=== PATIENT | male | born 1950 | race Caucasian/White ===

== ENCOUNTER 2021-08-11 13:43 | Inpatient (IN) | payer OTHER ==
[~2021-08-11] VITALS: Ht 172.7 cm; Wt 73.0 kg
--- NOTE | 2021-08-11 13:45 | NUR ---
PT ZOHAIB FROM DIALYSIS CENTER C/O LOW BP 80'S SYSTOLIC; NO HD GIVEN TODAY. ON ANTIBIOTIC TREATMENT MACRODANTIN FOR UTI STARTED YESTERDAY. PT LIVES AT [facility]. PT A/OX1. T-PIECE ON 6LPM; SATTING 96%. RCW HD PERM-A-CATH INTACT.
[2021-08-11] MEDS ORDERED: IV NS 0.9% 500 ML BAG IV ONE (14:00)
--- NOTE | 2021-08-11 14:12 | NUR ---
RAC #20G S/L; PATENT AND INTACT. BLOOD COLLECTED AND SENT TO LAB
[2021-08-11] MEDS ORDERED: DOCU-141 GT (14:19)
[2021-08-11] MEDS ORDERED: CHOL200013 GT (14:19)
[2021-08-11] MEDS ORDERED: TAMS-12 GT (14:19)
[2021-08-11] MEDS ORDERED: ESCI10TA GT (14:19)
[2021-08-11] MEDS ORDERED: LOSA25TA3 GT (14:19)
[2021-08-11] MEDS ORDERED: INSU100V36 SQ (14:19)
[2021-08-11] MEDS ORDERED: FAMO-131 GT (14:19)
[2021-08-11] MEDS ORDERED: MONT10TA22 GT (14:19)
[2021-08-11] MEDS ORDERED: FINA5TAB4 GT (14:19)
[2021-08-11] MEDS ORDERED: INSU100V7 SQ (14:19)
[2021-08-11] MEDS ORDERED: SENN-18 GT (14:19)
[2021-08-11] MEDS ORDERED: ZINC220T4 GT (14:19)
[2021-08-11 14:33] LABS: BASOPHILS # (AUTO) 0.1 K/uL (0.0-0.2); BASOPHILS % (AUTO) 0.5 % (0.0-2.0); EOSINOPHILS % (AUTO) 1.7 % (0.0-6.0); HEMATOCRIT 32 % (39-51); HEMOGLOBIN 9.9 g/dL (13.5-17.5); LYMPHOCYTES # (AUTO) 0.6 K/uL (0.8-4.8); LYMPHOCYTES % (AUTO) 4.2 % (20.0-44.0); MEAN CORPUSCULAR HGB CONC 31 g/dl (31.0-36.0); MEAN CORPUSCULAR VOLUME 97 fL (80-96); MONOCYTES # (AUTO) 0.8 K/uL (0.1-1.30); MONOCYTES % (AUTO) 5.8 % (2.0-12.0); NEUTROPHILS # (AUTO) 11.6 K/uL (1.8-8.9); NEUTROPHILS % (AUTO) 87.8 % (43.0-81.0); PLATELET COUNT (AUTO) 403 K/uL (150-450); RED BLOOD CELL COUNT(AUTO) 3.25 MIL/uL (4.5-6.0); WHITE BLOOD COUNT (AUTO) 13.2 K/uL (4.3-11.0)
[2021-08-11 14:39] LABS: CALCIUM, SERUM 11.4 mg/dL (8.5-10.1); CARBON DIOXIDE 26 mmol/L (21-32); CHLORIDE 98 mmol/L (98-107); CREATININE 4.2 mg/dL (0.6-1.3); GLUCOSE 209 mg/dL (74-106); POTASSIUM 3.2 mmol/L (3.5-5.1); SODIUM SERUM 132 mmol/L (136-145); UREA NITROGEN, BLOOD 68 mg/dL (7-18)
[2021-08-11] MEDS ORDERED: ONDANSETRON HCL/PF 4 MG/2 ML VIAL IV ONE (15:00)
[2021-08-11] MEDS ORDERED: ONDANSETRON HCL/PF 4 MG/2 ML VIAL ONE (15:10)
[2021-08-11 15:47] LABS: LYMPHOCYTES % (MANUAL) 5 % (16-48); MONOCYTES % (MANUAL) 10 % (0-11.0); NEUTROPHILS % (MANUAL) 85 (42-76)
[2021-08-11] MEDS ORDERED: PIPERACILLIN /TAZOBACTAM 3.375 G in IV D5W 50 ML IV ONE (16:00)
[2021-08-11] MEDS ORDERED: VANCOMYCIN 1 GM in IV D5W 250 ML IV ONE (16:00)
--- NOTE | 2021-08-11 16:13 | NUR ---
COVID ANTIGEN AND PCR SWAB COLLECTED AND SENT TO LAB. CALLED RT
--- NOTE | 2021-08-11 18:26 | NUR ---
[facility] CALLED PYROMETALLURGICAL ENGINEER PAGED.
--- NOTE | 2021-08-11 18:50 | NUR ---
BED ASSIGNED,112-2, TRANSFER AFTER 2000
--- NOTE | 2021-08-11 18:56 | NUR ---
ADLS DONE. INCONTINENT; SMALL LOOSE BMX1 & LARGE URINE NOTED. SKIN KEPT CLEAN AND DRY. TURNED PT Q2H. PT SEEN DURAN MANAGER HIV
--- NOTE | 2021-08-11 19:00 | NUR ---
RT NOTE RECEIVED PT ON 5LPM TBAR. NO SOB OR INCREASED WOB AT THE MOMENT. NO S/S OF ACUTE RESPIRATORY DISTRESS NOTED. WILL CONTINUW TO MONITOR T/O SHIFT
[2021-08-11] MEDS ORDERED: ONDANSETRON HCL/PF 4 MG/2 ML VIAL IVP PRN (20:00)
[2021-08-11] MEDS ORDERED: Z GUARD REMEDY 4 OZ OINT TP PRN (20:00)
[2021-08-11] MEDS ORDERED: DEXTROSE 50%-WATER 50 ML DISP.SYRIN IV PRN (20:00)
--- NOTE | 2021-08-11 20:05 | NUR ---
REPORT GIVEN TO PHYLICIA CLEARY RN FOR VELMA
[2021-08-11] MEDS ORDERED: CEFEPIME 2 GM in IV D5W 100 ML IV ONE (21:00)
--- NOTE | 2021-08-11 21:15 | NUR ---
TELE1 JUMBO OPERATOR NOTES RECEIVED FROM ER BY BED THIS 71 Y.O. MALE,ALERT,ORIENTED X1-2,CONFUSED,PLACE ON T-PIECE AT 6L,O2 SAT 99%.DX OF ACUTE HYPOXIC RESPIRATORY FAILURE,SEPSIS,PNA.CAME FROM HD CENTER FOR DH TREATMENT SUPPOSED TO BE BUT THE BLOOD PRESSURE WAS ON THE LOW SIDE.WITH KNOWN HX OF HTN,BPH,DM,OA,COVID POSITIVE.WITH GT CLAMPED ,RIGHT UPPER CHEST WALL CATHETER FOR HD TREATMENT.SALINE LOCK RIGHT AC FOR MEDS,NOTED SOME DRY WOUND WITH SCAB ON BOTH UPPER EXTREMITIES,PROMINENT ON THE RIGHT.INCONTINENT OF BOWEL AND BLADDER.FALL PRECAUTION OBSERVED.BED ON ,LOWEST POSITION AND LOCKED.DROPLET ISOLATION WITH PRECAUTION WHILE WAITING FOR PCR COVID TEST.WILL CONTINUE TO MONITOR STATUS.
[2021-08-11 21:20] VITALS: BP 101/53
[2021-08-11] MEDS: ESCITALOPRAM OXALATE (10 MG) 10 MG TABLET GT SCH (21:56)
[2021-08-11] MEDS: SENNOSIDES 8.6 MG TABLET GT SCH (21:56)
[2021-08-11] MEDS: HEPARIN SODIUM, PORCINE 5000 UNITS/1 ML VIAL SQ SCH (21:58)
[2021-08-11] MEDS ORDERED: CEFEPIME 1 GM VIAL ONE (22:10)
[2021-08-11] MEDS: ACETAMINOPHEN 650 MG/20.3 ML UDC GT PRN (22:54)
--- NOTE | 2021-08-11 22:54 | NUR ---
CHIEF LOAD DISPATCHER NOTES VERY RESTLESS WITH FACIAL GRIMACE NOTED,TYLENOL 650MG IN LIQUID FORM GIVEN VIA GT.
[2021-08-11] MEDS: INSULIN GLARGINE, 100 UNIT/ML CARTRIDGE SQ SCH (23:15)
[2021-08-11] MEDS: NEPRO 1,000 ML BOTTLE GT PRN (23:54)
[2021-08-12] VITALS: BP 111/54
--- NOTE | 2021-08-12 | NUR ---
CO FOUNDER AND CTO NOTES GT FEEDING OF NEPRO 55ML/HR RATE STARTED
--- NOTE | 2021-08-12 00:08 | NUR ---
RN NOTE CALLED LAB TO FOLLOW UP ON THE SECOND UNIT OF BLOOD THAT THE PATIENT IS SUPPOSE TO RECEIVE. SPOKE TO EUGENE, SHE SAID THAT SHE WILL GET BACK TO ME TO FOLLOW UP.
[2021-08-12] MEDS: BLOOD SUGAR DIAGNOSTIC 1 EACH STRIP IN SCH ×5 (00:25→23:48)
[2021-08-12] MEDS: INSULIN REGULAR, HUMAN 100 UNIT/ML 3 ML VIAL SQ PRN ×4 (00:26→17:20)
--- NOTE | 2021-08-12 00:30 | NUR ---
NEWSPERSON NOTES ACCU-CHECK BLOOD SUGAR CHECKED 174,COVERED WITH HUMULIN R 3 UNITS PER SLIDING SCALE.
--- NOTE | 2021-08-12 00:43 | NUR ---
STONE DERRICKMAN AND RIGGER NOTES PLACE ON BILATERAL SOFT WRIST RESTRAINT,PATIENT IS VERY RESTLESS,TRYING TO PULL GT AND IV TUBINGS,CHARGE NURSE MADE AWARE,ORDER PLACED
--- NOTE | 2021-08-12 02:14 | NUR ---
RT NOTE FOUND PT ON 5LPM, SPO2 @ 1OO%, DECREASED FIO2 TO 4LPM. SPO2 CURRENTLY AT 98-100% NO SOB NOTED. BACKUP TRACH BY BEDSIDE. NO S/S OF ACUTE RESPIRATORY DISTRESS. WILL CONTINUE TO MONITOR T/O SHIFT.
[2021-08-12] MEDS: HYDROCODONE/APAP 5/325MG TABLET GT PRN ×3 (02:57→23:48)
[2021-08-12 04:00] VITALS: BP 103/51
--- NOTE | 2021-08-12 05:45 | NUR ---
NUCLEAR PLANT EQUIPMENT OPERATOR NOTES SLEPT WITH INTERVALS,GT FEEDING INFUSING WELL,TOLERATED WELL,BLOOD SUGAR CONTROLLED.RESTRAINTS IN USED FOR SAFETY.IN NO ACUTE DISTRESS.
[2021-08-12] MEDS ORDERED: VANCOMYCIN POST DIALYSIS 500MG IV PRN (06:30)
[2021-08-12 07:04] LABS: BASOPHILS % (AUTO) 0.1 % (0.0-2.0); HEMATOCRIT 29 % (39-51); HEMOGLOBIN 9.2 g/dL (13.5-17.5); LYMPHOCYTES # (AUTO) 0.3 K/uL (0.8-4.8); LYMPHOCYTES % (AUTO) 1.8 % (20.0-44.0); MEAN CORPUSCULAR HGB CONC 32 g/dl (31.0-36.0); MEAN CORPUSCULAR VOLUME 96 fL (80-96); MONOCYTES # (AUTO) 0.3 K/uL (0.1-1.30); MONOCYTES % (AUTO) 1.8 % (2.0-12.0); NEUTROPHILS # (AUTO) 14.8 K/uL (1.8-8.9); NEUTROPHILS % (AUTO) 95.3 % (43.0-81.0); PLATELET COUNT (AUTO) 383 K/uL (150-450); WHITE BLOOD COUNT (AUTO) 15.5 K/uL (4.3-11.0)
[2021-08-12 07:27] LABS: CARBON DIOXIDE 24 mmol/L (21-32); CHLORIDE 98 mmol/L (98-107); CREATININE 4.6 mg/dL (0.6-1.3); GLUCOSE 154 mg/dL (74-106); MAGNESIUM 2.6 mg/dL (1.8-2.4); SODIUM SERUM 133 mmol/L (136-145); UREA NITROGEN, BLOOD 77 mg/dL (7-18)
--- NOTE | 2021-08-12 07:37 | NUR ---
RN NOTE PATIENT RECEIVED IN BED, AWAKE, A&OX1. PATIENT WITH T-PIECE AT 6L O2 WITH NO SIGNS OF LABORED BREATHING. BILATERAL SOFT WRIST RESTRAINS IN PLACE, SKIN WARM AND INTACT. G TUBE IN PLACE RUNNING NEPRO AT 55 CC/HR. LEFT AC 20G SL AND RIGHT UPPER CHEST HD CATH IN PLACE. BED LOCKED AND IN LOWEST POSITION, CALL LIGHT WITHIN REACH, 2 SIDE RAILS UP. WILL CONTINUE TO MONITOR.
[2021-08-12 08:00] VITALS: BP 117/55
[2021-08-12] MEDS ORDERED: POTASSIUM CHLORIDE 20 MEQ TAB.PRT.SR PO ONE (08:00)
[2021-08-12] MEDS: CHOLECALCIFEROL 1,000 UNIT TABLET (VIT D3) GT SCH (08:28)
[2021-08-12] MEDS: MONTELUKAST SODIUM (10MG) 10 MG TABLET GT SCH (08:28)
[2021-08-12] MEDS: FAMOTIDINE (20 MG) 20 MG TABLET GT SCH (08:28)
[2021-08-12] MEDS: ZINC SULFATE 220 MG CAPSULE GT SCH (08:28)
[2021-08-12] MEDS: FINASTERIDE (5 MG) 5 MG TABLET GT SCH (08:28)
[2021-08-12] MEDS: HEPARIN SODIUM, PORCINE 5000 UNITS/1 ML VIAL SQ SCH ×2 (08:30→22:10)
[2021-08-12] MEDS: TAMSULOSIN 0.4 MG CAP.SR.24H GT SCH (08:33)
[2021-08-12 12:00] VITALS: BP_SYST 108; BP_SYST 86; BP_DIAS 31; BP_DIAS 50
[2021-08-12] MEDS ORDERED: EPOETIN ALFA-EPBX 10,000 UNIT/ML VIAL IV ONE (15:00)
[2021-08-12 16:00] VITALS: BP 100/49
[2021-08-12] MEDS: NEPRO 1,000 ML BOTTLE GT PRN (18:34)
--- NOTE | 2021-08-12 18:46 | NUR ---
RN CLOSING NOTE PATIENT REMAINS IN BED, AWAKE, A&OX1. PATIENT WITH T-PIECE AT 6L O2 WITH NO SIGNS OF LABORED BREATHING. BILATERAL SOFT WRIST RESTRAINS IN PLACE, SKIN WARM AND INTACT. G TUBE IN PLACE RUNNING NEPRO AT 55 CC/HR. LEFT AC 20G SL AND RIGHT UPPER CHEST HD CATH IN PLACE. ALL NEEDS ATTENDED DURING SHIFT. BED LOCKED AND IN LOWEST POSITION, CALL LIGHT WITHIN REACH, 2 SIDE RAILS UP. WILL ENDORSE TO FENCE REPAIRMAN NURSE.
--- NOTE | 2021-08-12 19:30 | NUR ---
RN OPENING NOTE PATIENT RECEIVED IN BED, AWAKE, A&OX1 SCREAMING AND SHOUTING. PATIENT WITH T-PIECE AT 6L O2 WITH NO SIGNS OF LABORED BREATHING. BILATERAL SOFT WRIST RESTRAINS IN PLACE, SKIN WARM AND INTACT. G TUBE IN PLACE RUNNING NEPRO AT 55 CC/HR.G TUBE FLUSHING WELL AND PATENT. LEFT AC 20G SL AND RIGHT UPPER CHEST HD CATH IN PLACE. PATIENT ON TELE MONITOR HR OF 95.BED LOCKED AND IN LOWEST POSITION, CALL LIGHT WITHIN REACH, 2 SIDE RAILS UP. WILL CONTINUE TO MONITOR FOR PAIN AND FURTHER AGITATION.
[2021-08-12 20:00] VITALS: BP 91/65
[2021-08-12] MEDS: SENNOSIDES 8.6 MG TABLET GT SCH (22:04)
[2021-08-12] MEDS: CEFEPIME 1 GM in IV D5W 50 ML IV SCH (22:06)
[2021-08-12] MEDS: ESCITALOPRAM OXALATE (10 MG) 10 MG TABLET GT SCH (22:12)
[2021-08-12] MEDS: INSULIN GLARGINE, 100 UNIT/ML CARTRIDGE SQ SCH (22:27)
[2021-08-13] VITALS: BP 116/73
[2021-08-13] MEDS: INSULIN REGULAR, HUMAN 100 UNIT/ML 3 ML VIAL SQ PRN ×5 (00:02→23:07)
--- NOTE | 2021-08-13 00:08 | NUR ---
RN NOTE CALLED LAB TO FOLLOW UP ON THE SECOND UNIT OF BLOOD THAT THE PATIENT IS SUPPOSE TO RECEIVE. SPOKE TO DUNIA, SHE SAID THAT SHE WILL GET BACK TO ME TO FOLLOW UP. Addendum: 08/13/21 at 0417 by Darline Romero RN THIS NOTE IS NOT INTENDED FOR THIS PATIENT. WRONG PATIENT DOCUMENTATION.
--- NOTE | 2021-08-13 00:42 | NUR ---
RN NOTE LAB CALLED, SAYING THAT THEIR SYSTEM IS SHOWING THAT 2 UNITS OF BLOOD WAS GIVEN OUT FOR THIS PATIENT. I EXPLAINED ONCE MORE THAT ONLY ONE UNIT WAS TRANSFUSED TODAY, AND THAT WE ARE STILL WAITING ON THE SECOND UNIT FROM THEM.THEY SAID THEY WILL LOOK INTO IT ONCE MORE AND CALL BACK. WILL CONTINUE TO FOLLOW UP WITH THEM REGARDING THE ORDER. Addendum: 08/13/21 at 0417 by Darline Romero RN THIS NOTE IS NOT INTENDED FOR THIS PATIENT. WRONG PATIENT DOCUMENTATION.
[2021-08-13] MEDS: ACETAMINOPHEN 650 MG/20.3 ML UDC GT PRN (02:57)
[2021-08-13 04:00] VITALS: BP 92/57
--- NOTE | 2021-08-13 05:00 | NUR ---
RN NOTE REASSESSED PATIENTS TEMPERATURE. IT WAS 99.0.
[2021-08-13] MEDS: BLOOD SUGAR DIAGNOSTIC 1 EACH STRIP IN SCH ×4 (05:52→23:10)
[2021-08-13 07:15] LABS: BASOPHILS # (AUTO) 0.1 K/uL (0.0-0.2); BASOPHILS % (AUTO) 0.5 % (0.0-2.0); EOSINOPHILS % (AUTO) 0.1 % (0.0-6.0); HEMATOCRIT 30 % (39-51); HEMOGLOBIN 9.4 g/dL (13.5-17.5); LYMPHOCYTES # (AUTO) 0.2 K/uL (0.8-4.8); LYMPHOCYTES % (AUTO) 1.1 % (20.0-44.0); MEAN CORPUSCULAR HGB CONC 31 g/dl (31.0-36.0); MEAN CORPUSCULAR VOLUME 98 fL (80-96); MONOCYTES # (AUTO) 0.6 K/uL (0.1-1.30); MONOCYTES % (AUTO) 2.7 % (2.0-12.0); NEUTROPHILS # (AUTO) 21.3 K/uL (1.8-8.9); NEUTROPHILS % (AUTO) 95.6 % (43.0-81.0); PLATELET COUNT (AUTO) 390 K/uL (150-450); RED BLOOD CELL COUNT(AUTO) 3.06 MIL/uL (4.5-6.0); WHITE BLOOD COUNT (AUTO) 22.2 K/uL (4.3-11.0)
--- NOTE | 2021-08-13 07:16 | NUR ---
RN OPENING NOTE- PATIENT IN BED, AWAKE, SHOUTING. PATIENT WITH T-PIECE AT 6L O2 WITH NO SIGNS OF LABORED BREATHING. BILATERAL SOFT WRIST RESTRAINTS IN PLACE, SKIN WARM AND INTACT. G TUBE IN PLACE RUNNING NEPRO AT 55 CC/HR.G TUBE FLUSHING WELL AND PATENT. LEFT AC 20G SL AND RIGHT UPPER CHEST HD CATH IN PLACE. PATIENT ON TELE MONITOR HR OF 90/M .BED LOCKED AND IN LOWEST POSITION, CALL LIGHT WITHIN REACH, 2 SIDE RAILS UP. WILL CONTINUE TO MONITOR FOR PAIN AND FURTHER AGITATION.
--- NOTE | 2021-08-13 07:33 | NUR ---
RN CLOSING NOTE PATIENT REMAINS IN BED, AGITATED AT TIME YELLING. PATIENTS FEVER CAME DOWN TO 99.1 AFTER ADMINISTRATION OF TYLENOL AND THE USE OF COOLING MEASURES SUCH ICE PACKS. 55ML NEPRO THROUGH G TUBE STILL RUNNING. ALL PATIENT NEEDS MET THROUGHOUT THE NIGHT. ENDORSED PLAN OF CARE TO AM NURSE.
[2021-08-13 07:39] LABS: CALCIUM, SERUM 11.6 mg/dL (8.5-10.1); CARBON DIOXIDE 22 mmol/L (21-32); CHLORIDE 95 mmol/L (98-107); CREATININE 5.7 mg/dL (0.6-1.3); PHOSPHORUS 6.8 mg/dL (2.5-4.9); POTASSIUM 3.6 mmol/L (3.5-5.1); SODIUM SERUM 130 mmol/L (136-145)
[2021-08-13 08:00] VITALS: BP 122/74
[2021-08-13] MEDS ORDERED: EPOETIN ALFA (10,000 UNIT) 10,000 UNIT/ML VIAL IV ONE (08:30)
[2021-08-13] MEDS: TAMSULOSIN 0.4 MG CAP.SR.24H GT SCH (09:01)
[2021-08-13] MEDS: ZINC SULFATE 220 MG CAPSULE GT SCH (09:02)
[2021-08-13] MEDS: FINASTERIDE (5 MG) 5 MG TABLET GT SCH (09:02)
[2021-08-13] MEDS: MONTELUKAST SODIUM (10MG) 10 MG TABLET GT SCH (09:02)
[2021-08-13] MEDS: FAMOTIDINE (20 MG) 20 MG TABLET GT SCH (09:02)
[2021-08-13] MEDS: CHOLECALCIFEROL 1,000 UNIT TABLET (VIT D3) GT SCH (09:02)
[2021-08-13] MEDS: HEPARIN SODIUM, PORCINE 5000 UNITS/1 ML VIAL SQ SCH ×2 (09:07→20:50)
[2021-08-13 09:51] LABS: GLUCOSE 402 mg/dL (74-106)
[2021-08-13 09:52] LABS: UREA NITROGEN, BLOOD 110 mg/dL (7-18)
[2021-08-13] MEDS ORDERED: INSULIN REGULAR, HUMAN 100 UNIT/ML 3 ML VIAL SQ ONE (11:30)
--- NOTE | 2021-08-13 11:30 | NUR ---
RN NOTE- HD RN AT BEDSIDE . INITIATED HD.
[2021-08-13 12:00] VITALS: BP 122/78
--- NOTE | 2021-08-13 12:45 | NUR ---
RN NOTE- HD RN CEASED HD. LOW BP.
[2021-08-13 16:00] VITALS: BP 99/59
--- NOTE | 2021-08-13 16:31 | NUR ---
RN NOTE- UA COLLECTED IN & OUT CATH FOR NEPHRO TESTING. LAB NOTIFIED
[2021-08-13] MEDS ORDERED: ALTEPLASE CATHFLO 2 MG/VIAL XX ONE ×2 (17:30)
--- NOTE | 2021-08-13 18:37 | NUR ---
RN CLOSING NOTE- PATIENT REMAINS IN BED, CONFUSION W PERIODS OF CALLING OUT. GT 55ML NEPRO STILL RUNNING. ALL PATIENT NEEDS MET THROUGHOUT THE NIGHT. PT FOR HD TONIGHT. HD RN CAME TODAY, STOPPED HD DUE TO LOW BP. RT SUCTIONED PT PERIODICALLY, AGITATION AT TIMES, NEEDS ATTENDED, GT CONTINUES, SIDE RAILS UP, BED LOCKED, MONITOR/ ASSIST
[2021-08-13 18:48] LABS: BILIRUBIN,URINE NEGATIVE (NEGATIVE); COLOR,URINE YELLOW (YELLOW); LEUKOCYTE ESTERASE ,URINE MODERATE (NEGATIVE); NITRITE, URINE NEGATIVE (NEGATIVE); PH,URINE 5.5 (5.0-8.0); PROTEIN,URINE 100 mg/dl (NEGATIVE); UGLUCOSE 100 MG/DL mg/dL (NEGATIVE); UROBILINOGEN,URINE 0.2 EU/dL (0.2)
--- NOTE | 2021-08-13 19:40 | NUR ---
RN NOTE PT RECEIVED IN BED. PT HAS T-PIECE AT 5L TOLERATING WELL. PT IS ALERT AND ORIENTED X1. ON ORAL HEALTH THERAPIST SHOWING NSR. SOFT WRIST RESTRAINTS NOTED BILATERALLY. GT NOTED WITH NEPRO RUNNING AT 55 CC/HR. TOLERATING WELL WITH NO RESIDUAL NOTED. RIGHT AC #20 IV ACCESS FLUSHED AND INTACT WITH NO SIGNS OF INFILTRATION. RIGHT CHEST HD CATH NOTED WELL. ALL SAFETY MEASURES IMPLEMENTED. WILL CONTINUE TO MONITOR AND ASSESS FOR ANY CHANGES DURING SHIFT.
[2021-08-13 19:54] LABS: BACTERIA,URINE 4+ /HPF (None Seen); RBC,URINE 21-50 /HPF (0-2); SQUAMOUS EPITHELIAL CELL,UR 0-2 /HPF (None Seen); WBC,URINE 51-80 /HPF (0-3)
[2021-08-13 20:00] VITALS: BP 113/71
[2021-08-13] MEDS ORDERED: VANCOMYCIN 1 GM in IV D5W 250 ML IV ONE (20:00)
[2021-08-13] MEDS: SENNOSIDES 8.6 MG TABLET GT SCH (21:09)
[2021-08-13] MEDS: NEPRO 1,000 ML BOTTLE GT PRN (21:09)
[2021-08-13] MEDS: ESCITALOPRAM OXALATE (10 MG) 10 MG TABLET GT SCH (21:09)
[2021-08-13] MEDS: INSULIN GLARGINE, 100 UNIT/ML CARTRIDGE SQ SCH (23:09)
[2021-08-13] MEDS: CEFEPIME 1 GM in IV D5W 50 ML IV SCH (23:10)
[2021-08-14] VITALS: BP 104/61
[2021-08-14 04:00] VITALS: BP 101/54
[2021-08-14] MEDS: BLOOD SUGAR DIAGNOSTIC 1 EACH STRIP IN SCH ×4 (05:57→23:10)
[2021-08-14] MEDS: INSULIN REGULAR, HUMAN 100 UNIT/ML 3 ML VIAL SQ PRN ×4 (05:59→23:15)
--- NOTE | 2021-08-14 06:59 | NUR ---
RN NOTE NO CHANGES IN PT CONDITION DURING SHIFT. PT HAS T-PIECE AT 5L. PT IS ALERT AND ORIENTED X1. ON COFFEE MACHINE TECHNICIAN SHOWING NSR. SOFT WRIST RESTRAINTS NOTED BILATERALLY. GT NOTED WITH NEPRO RUNNING AT 55 CC/HR. TOLERATING WELL WITH NO RESIDUAL NOTED. RIGHT AC #20 IV ACCESS FLUSHED AND INTACT WITH NO SIGNS OF INFILTRATION. RIGHT CHEST HD CATH NOTED. ALL DUE MEDS GIVEN ORDERED. PT KEPT CLEAN AND COMFORTABLE. ALL SAFETY MEASURES IMPLEMENTED. WILL ENDORSE TO MORNING SHIFT RN FOR VELMA.
[2021-08-14 07:00] LABS: BASOPHILS % (AUTO) 0.1 % (0.0-2.0); EOSINOPHILS % (AUTO) 1.4 % (0.0-6.0); HEMATOCRIT 29 % (39-51); HEMOGLOBIN 9.1 g/dL (13.5-17.5); LYMPHOCYTES # (AUTO) 0.5 K/uL (0.8-4.8); LYMPHOCYTES % (AUTO) 2.4 % (20.0-44.0); MEAN CORPUSCULAR HGB CONC 31 g/dl (31.0-36.0); MEAN CORPUSCULAR VOLUME 97 fL (80-96); MONOCYTES # (AUTO) 1.3 K/uL (0.1-1.30); MONOCYTES % (AUTO) 6.3 % (2.0-12.0); NEUTROPHILS # (AUTO) 19.1 K/uL (1.8-8.9); NEUTROPHILS % (AUTO) 89.8 % (43.0-81.0); PLATELET COUNT (AUTO) 344 K/uL (150-450); RED BLOOD CELL COUNT(AUTO) 3.01 MIL/uL (4.5-6.0); WHITE BLOOD COUNT (AUTO) 21.2 K/uL (4.3-11.0)
[2021-08-14 07:22] LABS: CALCIUM, SERUM 11.5 mg/dL (8.5-10.1); CARBON DIOXIDE 22 mmol/L (21-32); CHLORIDE 97 mmol/L (98-107); CREATININE 6.2 mg/dL (0.6-1.3); GLUCOSE 222 mg/dL (74-106); MAGNESIUM 3.1 mg/dL (1.8-2.4); PHOSPHORUS 5.9 mg/dL (2.5-4.9); POTASSIUM 3.6 mmol/L (3.5-5.1); SODIUM SERUM 133 mmol/L (136-145)
[2021-08-14 07:25] LABS: UREA NITROGEN, BLOOD 116 mg/dL (7-18)
--- NOTE | 2021-08-14 07:36 | NUR ---
RN OPENING NOTE RECEIVED PATIENT IN BED, AWAKE. PT IS A/O X 1, CONFUSED AND YELLING. PATIENT WITH T-PIECE AT 5L O2 WITH NO SIGNS OF LABORED BREATHING. BILATERAL SOFT WRIST RESTRAINTS IN PLACE, SKIN WARM AND INTACT. G TUBE IN PLACE RUNNING NEPRO AT 55 CC/HR.G TUBE FLUSHING WELL AND PATENT. RIGHT AC 20G SL AND RIGHT UPPER CHEST HD CATH IN PLACE. PATIENT ON TELE MONITOR HR OF 90/M . ALL SAFETY MEASURES IN PLACE, BED LOCKED AND IN LOWEST POSITION, CALL LIGHT WITHIN REACH, 2 SIDE RAILS UP. WILL CONTINUE TO MONITOR THROUGHOUT SHIFT.
[2021-08-14 08:00] VITALS: BP 103/59
[2021-08-14] MEDS: TAMSULOSIN 0.4 MG CAP.SR.24H GT SCH (09:04)
[2021-08-14] MEDS: MONTELUKAST SODIUM (10MG) 10 MG TABLET GT SCH (09:04)
[2021-08-14] MEDS: FINASTERIDE (5 MG) 5 MG TABLET GT SCH (09:04)
[2021-08-14] MEDS: CHOLECALCIFEROL 1,000 UNIT TABLET (VIT D3) GT SCH (09:04)
[2021-08-14] MEDS: ZINC SULFATE 220 MG CAPSULE GT SCH (09:04)
[2021-08-14] MEDS: FAMOTIDINE (20 MG) 20 MG TABLET GT SCH (09:04)
[2021-08-14] MEDS: HEPARIN SODIUM, PORCINE 5000 UNITS/1 ML VIAL SQ SCH ×2 (09:05→21:17)
[2021-08-14 12:00] VITALS: BP 104/61
--- NOTE | 2021-08-14 13:51 | NUR ---
RN NOTES NEW DIALYSIS CATH. BEING PLACED BY EDGARD AT APPROX. 1400.
[2021-08-14] MEDS: ALBUMIN 25% 25 GM in PREMIX 1 EA IV PRN (15:09)
[2021-08-14 16:00] VITALS: BP 113/76
[2021-08-14] MEDS ORDERED: PAMIDRONATE 30 MG in IV NS 0.9% 500 ML IV ONE (18:00)
--- NOTE | 2021-08-14 19:23 | NUR ---
RN CLOSING NOTES PT IS RESTING IN BED, PT IS A/O X 1 AND CONFUSED. GT RUNNING NEPRO AT 55CC/HR. PT HAS R CHEST HD CATH , R AC 20G. FLUSHING WELL AND PATENT. ALL SAFETY MEASURES IN PLACE, BED IN LOWEST LOCKED POSITION, SIDE RAILS UP X 3, CALL LIGHT WITHIN REACH. WILL ENDORSE TO LOOM MECHANIC NURSE FOR VELMA.
--- NOTE | 2021-08-14 19:49 | NUR ---
RN NOTES PT IS RESTING IN BED, PT IS A/O X 1 AND CONFUSED. GT RUNNING NEPRO AT 55CC/HR. PT HAS R CHEST HD CATH , R AC 20G. FLUSHING WELL AND PATENT. ALL SAFETY MEASURES IN PLACE, BED IN LOWEST LOCKED POSITION, SIDE RAILS UP X 3, CALL LIGHT WITHIN REACH. WILL CONTINUE TO MONITOR.
[2021-08-14 20:00] VITALS: BP 103/65
[2021-08-14] MEDS: MUPIROCIN OINT 2% 22 GM TUBE NS SCH (21:09)
[2021-08-14] MEDS: SENNOSIDES 8.6 MG TABLET GT SCH (21:12)
[2021-08-14] MEDS: ESCITALOPRAM OXALATE (10 MG) 10 MG TABLET GT SCH (21:12)
[2021-08-14] MEDS: INSULIN GLARGINE, 100 UNIT/ML CARTRIDGE SQ SCH (22:07)
[2021-08-14] MEDS: CEFEPIME 1 GM in IV D5W 50 ML IV SCH (23:09)
[2021-08-15 01:14] VITALS: BP 113/66
[2021-08-15] MEDS: BLOOD SUGAR DIAGNOSTIC 1 EACH STRIP IN SCH ×2 (05:41→13:09)
[2021-08-15] MEDS: INSULIN REGULAR, HUMAN 100 UNIT/ML 3 ML VIAL SQ PRN (05:42)
[2021-08-15 06:32] VITALS: BP 92/56
--- NOTE | 2021-08-15 06:42 | NUR ---
RN NOTES PT IS RESTING IN BED, PT IS A/O X 1 AND CONFUSED. GT RUNNING NEPRO AT 55CC/HR. PT HAS R CHEST HD CATH , R AC 20G. FLUSHING WELL AND PATENT. ALL SAFETY MEASURES IN PLACE, BED IN LOWEST LOCKED POSITION, SIDE RAILS UP X 3, CALL LIGHT WITHIN REACH. WILL ENDORSE CARE TO DAY SHIFT NURSE.
[2021-08-15 06:49] LABS: BASOPHILS % (AUTO) 0.1 % (0.0-2.0); EOSINOPHILS % (AUTO) 0.4 % (0.0-6.0); HEMATOCRIT 29 % (39-51); LYMPHOCYTES # (AUTO) 0.2 K/uL (0.8-4.8); LYMPHOCYTES % (AUTO) 1.5 % (20.0-44.0); MEAN CORPUSCULAR HGB CONC 31 g/dl (31.0-36.0); MEAN CORPUSCULAR VOLUME 96 fL (80-96); MONOCYTES # (AUTO) 1.5 K/uL (0.1-1.30); MONOCYTES % (AUTO) 9.8 % (2.0-12.0); NEUTROPHILS # (AUTO) 13.2 K/uL (1.8-8.9); NEUTROPHILS % (AUTO) 88.2 % (43.0-81.0); PLATELET COUNT (AUTO) 285 K/uL (150-450); WHITE BLOOD COUNT (AUTO) 14.9 K/uL (4.3-11.0)
--- NOTE | 2021-08-15 07:24 | NUR ---
RN OPENING NOTE RECEIVED PATIENT IN BED, ASLEEP. PT IS A/O X 1, CONFUSED AND YELLING. PATIENT WITH T-PIECE AT 5L O2 WITH NO SIGNS OF LABORED BREATHING. BILATERAL SOFT WRIST RESTRAINTS IN PLACE, SKIN WARM AND INTACT. G TUBE IN PLACE RUNNING NEPRO AT 55 CC/HR.G TUBE FLUSHING WELL AND PATENT. RIGHT AC 20G SL AND RIGHT UPPER CHEST HD CATH IN PLACE. PATIENT ON TELE MONITOR HR OF 90/M . ALL SAFETY MEASURES IN PLACE, BED LOCKED AND IN LOWEST POSITION, CALL LIGHT WITHIN REACH, 2 SIDE RAILS UP. WILL CONTINUE TO MONITOR THROUGHOUT SHIFT.
[2021-08-15 08:00] VITALS: BP 108/49
[2021-08-15 08:14] LABS: CALCIUM, SERUM 9.4 mg/dL (8.5-10.1); CARBON DIOXIDE 24 mmol/L (21-32); CHLORIDE 100 mmol/L (98-107); CREATININE 4.1 mg/dL (0.6-1.3); GLUCOSE 304 mg/dL (74-106); MAGNESIUM 2.6 mg/dL (1.8-2.4); PHOSPHORUS 2.3 mg/dL (2.5-4.9); POTASSIUM 3.1 mmol/L (3.5-5.1); SODIUM SERUM 134 mmol/L (136-145); UREA NITROGEN, BLOOD 75 mg/dL (7-18)
[2021-08-15] MEDS: FINASTERIDE (5 MG) 5 MG TABLET GT SCH (08:33)
[2021-08-15] MEDS: TAMSULOSIN 0.4 MG CAP.SR.24H GT SCH (08:33)
[2021-08-15] MEDS: FAMOTIDINE (20 MG) 20 MG TABLET GT SCH (08:33)
[2021-08-15] MEDS: MONTELUKAST SODIUM (10MG) 10 MG TABLET GT SCH (08:33)
[2021-08-15] MEDS: ZINC SULFATE 220 MG CAPSULE GT SCH (08:33)
[2021-08-15] MEDS: HEPARIN SODIUM, PORCINE 5000 UNITS/1 ML VIAL SQ SCH (08:34)
[2021-08-15] MEDS: MUPIROCIN OINT 2% 22 GM TUBE NS SCH (08:34)
[2021-08-15] MEDS ORDERED: CEFE1FRO IV (09:54)
[2021-08-15] MEDS: ALBUMIN 25% 25 GM in PREMIX 1 EA IV PRN (10:53)
[2021-08-15 12:00] VITALS: BP 112/44
[2021-08-15] MEDS: ACETAMINOPHEN 650 MG/20.3 ML UDC GT PRN (14:30)
[2021-08-15] MEDS: HYDROCODONE/APAP 5/325MG TABLET GT PRN (14:31)
--- NOTE | 2021-08-15 14:44 | NUR ---
DC NOTES PT DC'D TO SNF IN STABLE CONDITION. DC INSTRUCTIONS GIVEN AND EXPLAINED TO AMBULANCE CREW. ALL PAPERWORK SIGNED AND COMPLETED. ALL BELONGINGS SENT. CEFEPIME TO CONTINUE VIA IM. IV ACCESS REMOVED SAFELY. NO COMPLICATIONS NOTED AT THIS TIME. PT LEFT UNIT IN STABLE CONDITION VIA GURNEY. PT ENDORSED TO AMBULANCE CREW ACCORDINGLY.
== END 2021-08-15 15:01 | DRG 871 ==
LOC: ER 13:55 → TELE1 19:01
PROVIDERS: ADMIT Nurse Practitioner Family; ATTEND Internal Medicine
PROC: 5A1D70Z Performance of Urinary Filtration, Intermittent, Less than 6 Hours Per Day (ICD-10-PCS; 2021-08-13)
PROC: 5A1935Z Respiratory Ventilation, Less than 24 Consecutive Hours (ICD-10-PCS; principal; 2021-08-15)
DX: A41.9 Sepsis, unspecified organism (principal); J96.21 Acute and chronic respiratory failure with hypoxia; N18.6 End stage renal disease; I21.A1 Myocardial infarction type 2; J15.9 Unspecified bacterial pneumonia; I12.0 Hypertensive chronic kidney disease with stage 5 chronic kidney disease or end stage renal disease; N39.0 Urinary tract infection, site not specified; J81.1 Chronic pulmonary edema; E87.1 Hypo-osmolality and hyponatremia; G93.40 Encephalopathy, unspecified; Z20.822 Contact with and (suspected) exposure to COVID-19; Z93.1 Gastrostomy status; N40.0 Benign prostatic hyperplasia without lower urinary tract symptoms; F41.9 Anxiety disorder, unspecified; Z79.4 Long term (current) use of insulin; Z79.899 Other long term (current) drug therapy; M19.90 Unspecified osteoarthritis, unspecified site; F32.A Depression, unspecified; E83.52 Hypercalcemia; E78.5 Hyperlipidemia, unspecified; E11.22 Type 2 diabetes mellitus with diabetic chronic kidney disease; Z99.2 Dependence on renal dialysis; D64.9 Anemia, unspecified; U09.9 Post COVID-19 condition, unspecified; E87.6 Hypokalemia
CPT/HCPCS: 31720; 36415; 71045-TC; 80048-TC; 80202-TC; 81001; 82962-TC; 83605-TC; 83735-TC; 84100-TC; 84484-TC; 85025-TC; 86706; 87040-TC; 87081-TC; 87086-TC; 87340; 90935-TC; 94640-TC; 94760-TC; 94762-TC; 94799-TC; A4216; A4217; C9803; G0378; J0692; J0885; J1644; J1815; J2405; J2430; J2543; J2997; J3370; J7030; J7040; J7050; J7060; P9047; U0003